=== PATIENT | female | born 1940 | race Caucasian/White ===

== ENCOUNTER → 2016-10-01 | Outpatient (CLI) | payer MEDICARE, BC ==
--- NOTE | 2016-10-01 15:29 | RAD ---
Indication: Palpable nodule left posterior calf. Sonographic interrogation of the area of palpable abnormality in the posterior left calf was performed. There is a slightly lobulated and hypoechoic mass in the subcutaneous tissues at the area palpable abnormality measuring 4.8 x 1.1 cm. This may represent a lipoma. No internal vascularity is seen. 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 Continued clinical follow-up to confirm stability is recommended.
== END | disposition home or self-care (01) ==
LOC: US 14:58
PROVIDERS: ATTEND Family Medicine
DX: M79.662 Pain in left lower leg (principal)
CPT/HCPCS: 76881

== ENCOUNTER → 2019-04-27 | Outpatient (CLI) | payer MEDICARE, BC ==
--- NOTE | 2019-04-27 16:37 | RAD ---
EXAM: Thoracic spine, 3 views. HISTORY: Pain. COMPARISON: None. FINDINGS: 3 views of the thoracic spine are obtained. There is degenerative endplate remodeling and anterior spurring throughout the thoracic visualized cervical spine. There is minimal scoliosis. There is no significant listhesis. No acute fracture is seen. There is humeral fracture fixation instrumentation, partially included on the [id number]. IMPRESSION: 1. 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 2. Mild scoliosis. 3. No acute osseous finding. Electronically signed by: April Padilla MD (04/27/2019 4:34 PM) [facility]
== END ==
LOC: RAD 12:32
PROVIDERS: ATTEND Family Medicine
DX: M47.814 Spondylosis without myelopathy or radiculopathy, thoracic region (principal); M41.84 Other forms of scoliosis, thoracic region; I12.9 Hypertensive chronic kidney disease with stage 1 through stage 4 chronic kidney disease, or unspecified chronic kidney disease; E11.22 Type 2 diabetes mellitus with diabetic chronic kidney disease; N18.9 Chronic kidney disease, unspecified
CPT/HCPCS: 72072

== ENCOUNTER → 2019-05-23 | Outpatient (CLI) | payer MEDICARE, BC ==
--- NOTE | 2019-05-23 17:42 | KCIC ---
Kendrick radiograph of the orbits 05/23/2019 CLINICAL HISTORY: Pre-MRI evaluation. History of metal exposure to the eyes. A Kendrick radiographs of the skull were obtained with the patient looking up and down. Additionally lateral digital radiographs of the skull was obtained. Patient is post right frontal parietal craniotomy. No radiopaque foreign body is seen involving either orbit. The visualized paranasal sinuses are clear. No fracture is seen. IMPRESSION: No radiopaque foreign body is seen involving either orbit. Electronically signed by: Hakeem Rodriguez MD (05/23/2019 5:38 PM) [facility]
== END | disposition home or self-care (01) ==
LOC: KCIC MRI 12:53
PROVIDERS: ATTEND Family Medicine
DX: Z01.818 Encounter for other preprocedural examination (principal)
CPT/HCPCS: 70030

== ENCOUNTER → 2021-04-04 | Outpatient (CLI) | payer MEDICARE, BC ==
--- NOTE | 2021-04-04 16:31 | RAD ---
EXAM: 3 Views Right Shoulder DATE: 04/04/2021 2:43 PM INDICATION: Reason: PAIN OF RIGHT SHOULDER / Spl. Instructions: / History: COMPARISON: No Prior FINDINGS: There is no evidence for acute fracture or dislocation. AC joint is congruent. AC joint degenerative changes. Small inferior glenoid osteophytes. Humeral head is not high riding. IMPRESSION: 1. No acute fracture or dislocation. 2. Right AC joint degenerative change. 3. Small inferior glenoid osteophytes. Electronically signed by: Heladio French MD (04/04/2021 4:28 PM) [id number]
== END ==
LOC: RAD 14:11
PROVIDERS: ATTEND Family Medicine
DX: M19.011 Primary osteoarthritis, right shoulder (principal); M25.711 Osteophyte, right shoulder
CPT/HCPCS: 73030